=== PATIENT | female | born 1975 | race Caucasian/White ===

== ENCOUNTER 2019-03-29 11:59 | Emergency (ER) | payer SELFPAY ==
[2019-03-29] MEDS ORDERED: ONDANSETRON INJ 4 MG/2 ML VIAL IV ONE (12:13)
--- NOTE | 2019-03-29 12:49 | ED.PDOC ---
History of Present Illness - General Chief Complaint: Abdominal Pain Stated Complaint: epigastric pain Time Seen by Provider: 03/29/19 12:32 - History of Present Illness Initial Comments: Patient presents with abdominal pain for 10 hours. Sudden onset, infrasternal, non-radiating, burning in nature, constant, associated with N/V of yellow sputum, multiple previous episodes. No history of abdominal surgeries. No diarrhea. Pain is mildly better just after vomiting. Las meal was yesterday. Last BM was this morning and was normal. No other complaints. Timing/Duration: other - 10 hours Severity: moderate Improving Factors: other - as in HPI Worsening Factors: nothing Associated Symptoms: nausea/vomiting Allergies/Adverse Reactions: Allergies NO KNOWN ALLERGY Allergy (Verified 03/29/19 12:12) Home Medications: Ambulatory Orders Omeprazole 20 mg PO QAM #30 cap 03/29/19 Review of Systems - Review of Systems Constitutional: States: no symptoms reported EENTM: States: no symptoms reported Respiratory: States: no symptoms reported Cardiology: States: no symptoms reported Gastrointestinal/Abdominal: States: see HPI Genitourinary: States: no symptoms reported Musculoskeletal: States: no symptoms reported Skin: States: no symptoms reported Neurological: States: no symptoms reported Endocrine: States: no symptoms reported Hematologic/Lymphatic: States: no symptoms reported Past Medical History (General) - Patient Medical History Hx Stroke: No Hx Congestive Heart Failure: No Hx Diabetes: No Surgical History: no surgical history - Vaccination History Hx Influenza Vaccination: No - Social History Hx Tobacco Use: No - Female History Patient is a Female of Child Bearing Age (10 -59 yrs old): Yes Family Medical History - Family History Mother Family History: Unknown Living Status: Unknown Physical Exam - Physical Exam General Appearance: Alert Eye Exam: bilateral normal Ears, Nose, Throat: normal ENT inspection Neck: non-tender, full range of motion, supple Respiratory: lungs clear, normal breath sounds Cardiovascular/Chest: normal peripheral pulses, regular rate, rhythm Gastrointestinal/Abdominal: normal bowel sounds, non tender, soft Back Exam: normal inspection, no CVA tenderness Extremity: normal range of motion, non-tender, normal inspection Neurologic: no motor/sensory deficits, alert, normal mood/affect, oriented x 3 Skin Exam: normal color Lymphatic: no adenopathy Progress - Progress Progress: 03/29/19 15:51 Laboratory Tests 03/29/19 03/29/19 03/29/19 12:27 12:27 12:27 WBC 12.4 H RBC 4.80 Hgb 13.6 Hct 40.1 MCV 83.5 MCH 28.3 MCHC 33.8 RDW 15.6 H Plt Count 191 MPV 9.2 Absolute Neuts (auto) 10.80 H Absolute Lymphs (auto) 1.30 Absolute Monos (auto) 0.30 Absolute Eos (auto) 0.00 Absolute Basos (auto) 0.00 Neutrophils % 86.7 H Lymphocytes % 10.1 L Monocytes % 2.7 Eosinophils % 0.1 L Basophils % 0.4 Sodium 136 Potassium 4.0 Chloride 101 Carbon Dioxide 23 Anion Gap 16.0 BUN 12 Creatinine 0.77 BUN/Creatinine Ratio 15.6 Random Glucose 119 H Serum Osmolality 272.9 L Calcium 9.4 Total Bilirubin 0.7 AST 28 ALT 26 Alkaline Phosphatase 90 Serum Total Protein 7.8 Albumin 4.4 Globulin 3.4 Albumin/Globulin Ratio 1.3 Lipase 24 Serum HCG, Qual Urine Color Red H Urine Appearance Cloudy Urine pH 7.0 Ur Specific [place] 1.025 Urine Protein 30 Urine Glucose (UA) Negative Urine Ketones Negative Urine Blood Large H Urine Nitrite Negative Urine Bilirubin Negative Urine Urobilinogen 0.2 Ur Leukocyte Esterase Negative Urine RBC Tntc H Urine WBC 0 Ur Epithelial Cells 1-3 Urine Bacteria Rare 03/29/19 12:27 WBC RBC Hgb Hct MCV MCH MCHC RDW Plt Count MPV Absolute Neuts (auto) Absolute Lymphs (auto) Absolute Monos (auto) Absolute Eos (auto) Absolute Basos (auto) Neutrophils % Lymphocytes % Monocytes % Eosinophils % Basophils % Sodium Potassium Chloride Carbon Dioxide Anion Gap BUN Creatinine BUN/Creatinine Ratio Random Glucose Serum Osmolality Calcium Total Bilirubin AST ALT Alkaline Phosphatase Serum Total Protein Albumin Globulin Albumin/Globulin Ratio Lipase Serum HCG, Qual Negative Urine Color Urine Appearance Urine pH Ur Specific [place] Urine Protein Urine Glucose (UA) Urine Ketones Urine Blood Urine Nitrite Urine Bilirubin Urine Urobilinogen Ur Leukocyte Esterase Urine RBC Urine WBC Ur Epithelial Cells Urine Bacteria No concerning findings on labs. Patient received Zofran 4 mg upon arrival but was still nauseous. She attempted to drink a GI cocktail but vomited it up. She was given Protonix 40 mg IV x one and Phenergan. He pain improved significantly. She was able to drink a GI cocktail at that point and it made her symptoms almost resolve. She was given an RX for Phenergan and omeprazole. Likely gastritis. She was instructed to see a general practitioner in order to get a referral to GI for possible upper endoscopy. Departure - Departure Clinical Impression: Gastritis Disposition: Discharge to Home or Self Care Condition: Good Departure Forms: ED Discharge - Pt. Copy, Patient Portal Self Enrollment Instructions: Gastritis (DC), [place] Diet Diet: other - see diet guidelines Activity: increase activity as tolerated Prescriptions: Omeprazole 20 mg PO QAM #30 cap Home Medications: Ambulatory Orders Omeprazole 20 mg PO QAM #30 cap 03/29/19 Additional Instructions: Follow up with a family medicine physician for possible referral to a G.I. doctor. You may need an upper endoscopy. Take medication as prescribed. Return to the E.R. for worsening symptoms or temperature greater than 100.3.
[2019-03-29] MEDS ORDERED: KETOROLAC TROMETHAMINE INJ 30 MG/ML VIAL IV ONE (12:58)
[2019-03-29] MEDS ORDERED: ALUM & MAG HYDROX-SIMETHICONE 30 ML, LIDOCAINE VISCOUS 2% 15 ML PO ONE ×4 (12:59→15:09)
[2019-03-29] MEDS ORDERED: ALUM & MAG HYDROX-SIMETHICONE 30 ML UD ONE ×2 (13:00→15:12)
[2019-03-29] MEDS ORDERED: LIDOCAINE HCL 2% (MOUTH-THROAT) 15 ML UD ONE ×2 (13:00→15:12)
--- NOTE | 2019-03-29 13:28 | RAD ---
EXAM DESCRIPTION: Abdomen Flat Upright CLINICAL HISTORY: 43 years, Female, epigastric burning, possible hiatal hernia COMPARISON: None. FINDINGS: Two x-ray views of the abdomen were performed. No pneumoperitoneum is present. The lung bases are clear. No gaseous distention of bowel. No suspicious air-fluid level. No visualized hiatal hernia. No suspicious calcification. Small amount colonic stool. Enthesopathy projects off the iliac wings. IMPRESSION: No evidence of bowel obstruction. No hiatal hernia directly visualized although the lack of visualization on this study does not exclude its presence. Electronically signed by: Katelyn Vidal MD 03/29/2019 1:27 PM CDT
[2019-03-29] MEDS ORDERED: PANTOPRAZOLE SODIUM IV 40 MG VIAL ONE (13:29)
[2019-03-29] MEDS ORDERED: ROCURONIUM BROMIDE 10 MG/ML VIAL IV ONE (13:30)
[2019-03-29] MEDS ORDERED: PANTOPRAZOLE SODIUM IV 40 MG VIAL IV ONE (13:34)
[2019-03-29] MEDS ORDERED: PROMETHAZINE HCL INJ 25 MG in SODIUM CHLORIDE 0.9% 50ML 50 ML IVPB ONE (13:41)
[2019-03-29] MEDS ORDERED: PROMETHAZINE HCL INJ 25 MG/ML VIAL ONE (13:50)
[2019-03-29] MEDS ORDERED: SODIUM CHLORIDE 0.9% 50ML 50 ML ONE (13:51)
[2019-03-29 16:07] VITALS: BP 155/101; TEMP 99.8; O2SAT 97
== END 2019-03-29 16:07 | disposition home or self-care (01) ==
LOC: ER 11:59
DX: K29.70 Gastritis, unspecified, without bleeding (principal)
CPT/HCPCS: 36415; 74019; 80053; 81001; 83690; 84703; 85025; A4216; J1885; J2405; J2550

== ENCOUNTER 2020-04-04 01:12 | Emergency (ER) | payer SELFPAY ==
[2020-04-04] MEDS ORDERED: MORPHINE SULFATE INJ 10 MG/ML VIAL IV ONE (01:20)
[2020-04-04] MEDS ORDERED: ONDANSETRON INJ 4 MG/2 ML VIAL IV ONE ×3 (01:20→05:18)
[2020-04-04] MEDS ORDERED: SODIUM CHLORIDE 0.9% 1000ML 1,000 ML IVS PRN (01:20)
--- NOTE | 2020-04-04 01:23 | ED.PDOC ---
History of Present Illness - General Time Seen by Provider: 04/04/20 01:20 - History of Present Illness Initial Comments: 44 yo F comes in with the c/c of abdominal pain, n/v since 8 PM. States she has on and off spells for the past several weeks. worse after eating. Noticed her urine is dark. Pain radiates to her chest. no diarrhea, no black or bloody bm. no prior abdominal surgeries. Allergies/Adverse Reactions: Allergies NO KNOWN ALLERGY Allergy (Verified 03/29/19 12:12) Home Medications: Ambulatory Orders Omeprazole 20 mg PO QAM #30 cap 03/29/19 Review of Systems - Review of Systems Constitutional: Denies: diaphoresis, fever, malaise EENTM: Denies: eye pain, blurred vision, tearing, double vision, ear pain Respiratory: Denies: cough, orthopnea, short of breath, stridor Cardiology: States: chest pain. Denies: edema, palpitations, syncope Gastrointestinal/Abdominal: States: abdominal pain, nausea, vomiting. Denies: constipation, diarrhea Genitourinary: Denies: discharge, dysuria, frequency, hematuria Musculoskeletal: Denies: back pain, joint pain, joint swelling, muscle pain, muscle stiffness Skin: Denies: change in color, change in hair/nails, dryness, rash Neurological: Denies: headache, numbness, paresthesia, pre-existing deficit, seizure, tingling, tremors, weakness Endocrine: Denies: intolerance to cold, intolerance to heat, increased urine, unexplained weight gain, unexplained weight loss Hematologic/Lymphatic: Denies: anemia, blood clots, easy bleeding, easy bruising Past Medical History (General) - Patient Medical History Hx Stroke: No Hx Congestive Heart Failure: No Hx Diabetes: No - Vaccination History Hx Influenza Vaccination: No - Social History Hx Tobacco Use: No Family Medical History - Family History Mother Family History: Unknown Living Status: Unknown Physical Exam - Physical Exam General Appearance: Alert, No apparent distress Eye Exam: bilateral normal, bilateral scleral icterus Ears, Nose, Throat: hearing grossly normal, normal ENT inspection Neck: non-tender, full range of motion, supple, normal inspection Respiratory: chest non-tender, lungs clear, normal breath sounds, no respiratory distress, no accessory muscle use Cardiovascular/Chest: normal peripheral pulses, regular rate, rhythm, no edema, no gallop, no JVD, no murmur Peripheral Pulses: radial,right: 2+, radial,left: 2+ Gastrointestinal/Abdominal: normal bowel sounds, soft, no organomegaly, no pulsatile mass, other - RUQ tenderness, no rebound no gaurding. 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 Will get IVF, morphine, zofran and Zosyn 4.5 mg IV. EKG and CXR for chest pain. EKG shows NSR HR 100, normal ekg. CXR shows no acute cardiopulmonary pathology. bedside US shows + West sign, large gallstone noted, unable to access gbw thickness due to bowel gas. Common bile duct at least 1 cm, but difficult due to bowel gas interference. no stones noted in gallbladder. gallbladder sludge. pain still continues will get 1 mg Dilaudid and 4 mg zofran. lab called and said lipase was to numerous to count. CT scan shows: Gallstone pancreatitis. Dilated common bile duct, with suspected choledocholithiasis. Patient refusing transport by ambulance. 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 The hist ory and assessments from nurses notes were reviewed and considered, and the patient's home medication list was also reviewed and considered. My assessment and the results of testing completed here in the ED were discussed with the patient. All questions were answered, and they express understanding of my assessment and the plan. Patient will sign out AMA to have her son drive her to [facility]. Talk to ER doc at [facility], accepted for transfer. Patient explained the risk of not going by ambulance. patient left AMA in stable condition. - Results/Orders Results/Orders: 04/04/20 01:20 Sodium Chloride 0.9% 1000ML [Ns 1000 ml] 1,000 ml IVS STAT HCG,QUALITATIVE URINE Stat URINALYSIS Stat 04/04/20 01:30 EKG STAT 04/04/20 02:58 BLOOD CULTURE Stat 04/04/20 03:06 Hold Metformin x 48Hrs [id number] Abdomen/Pelvis w/Contrast [CT] Stat Laboratory Results WBC 13.3 K/mm3 (4.8-10.8) H 04/04/20 01:28 RBC 4.86 M/mm3 (4.20-5.40) 04/04/20 01:28 Hgb 13.6 gm/dL (12.0-16.0) 04/04/20 01:28 Hct 40.7 % (36.0-47.0) 04/04/20 01:28 MCV 83.8 fl (81.0-99.0) 04/04/20 01:28 MCH 27.9 pg (27.0-31.0) 04/04/20 01:28 MCHC 33.3 g/dL (33.0-37.0) 04/04/20 01:28 RDW 16.3 % (11.5-14.5) H 04/04/20 01:28 Plt Count 203 K/mm3 (130-400) 04/04/20 01:28 MPV 9.0 fl (7.40-10.4) 04/04/20 01:28 Absolute Neuts (auto) 11.40 K/uL (1.8-6.8) H 04/04/20 01:28 Absolute Lymphs (auto) 1.10 K/uL (1.0-3.4) 04/04/20 01:28 Absolute Monos (auto) 0.60 K/uL (0.2-0.8) 04/04/20 01:28 Absolute Eos (auto) 0.00 K/uL (0.0-0.4) 04/04/20 01:28 Absolute Basos (auto) 0.10 K/uL (0.0-0.1) 04/04/20 01:28 Neutrophils % 86.1 % (42.0-78.0) H 04/04/20 01:28 Lymphocytes % 8.2 % (20.0-50.0) L 04/04/20 01:28 Monocytes % 4.7 % (2.0-9.0) 04/04/20 01:28 Eosinophils % 0.3 % (1.0-5.0) L 04/04/20 01:28 Basophils % 0.7 % (0.0-2.0) 04/04/20 01:28 Sodium 136 mmol/L (135-145) 04/04/20 01:28 Potassium 4.2 mmol/L (3.6-5.0) 04/04/20 01:28 Chloride 103 mmol/L (101-111) 04/04/20 01:28 Carbon Dioxide 21 mmol/L (21-31) 04/04/20 01:28 Anion Gap 16.2 (12-18) 04/04/20 01:28 BUN 15 mg/dL (7-18) 04/04/20 01:28 Creatinine 0.89 mg/dL (0.6-1.3) 04/04/20 01:28 BUN/Creatinine Ratio 16.9 (10-20) 04/04/20 01:28 Random Glucose 167 mg/dL (70-105) H 04/04/20 01:28 Serum Osmolality 276.6 mOsm/L (275-295) 04/04/20 01:28 Calcium 9.2 mg/dL (8.4-10.2) 04/04/20 01:28 Total Bilirubin 3.9 mg/dL (0.2-1.0) H* 04/04/20 01:28 AST 162 IU/L (10-42) H 04/04/20 01:28 ALT 260 IU/L (10-60) H 04/04/20 01:28 Alkaline Phosphatase 217 IU/L (42-121) H 04/04/20 01:28 Troponin I < 0.02 ng/mL (0.01-0.05) 04/04/20 01:28 Serum Total Protein 7.8 gm/dL (6.4-8.2) 04/04/20 01:28 Albumin 4.3 g/dl (3.2-5.5) 04/04/20 01:28 Globulin 3.5 gm/dL (2.3-3.5) 04/04/20 01:28 Albumin/Globulin Ratio 1.2 (1.1-1.9) 04/04/20 01:28 Lipase > 57 U/L (22-51) H 04/04/20 01:28 Departure - Departure Clinical Impression: Gallstone pancreatitis Disposition: Transfer to Hospital Home Medications: Ambulatory Orders Omeprazole 20 mg PO QAM #30 cap 03/29/19 Transfer to Outside Facility - Transfer Information Decision to Transfer Date: 04/04/20 Decision to Transfer Time: 03:00 Reason for Transfer: required specialist not available Accepting Facility: [facility] - patient refusing transport by ambulance. will have patient sign out AMA
--- NOTE | 2020-04-04 02:02 | RAD ---
EXAM DESCRIPTION: Chest,1 View CLINICAL HISTORY: 44 years Female, chest pain COMPARISON: None TECHNIQUE: Single AP chest radiograph. FINDINGS: Clear lungs. No pneumothorax or pleural effusion. Normal cardiomediastinal contour. Normal osseous structures. IMPRESSION: 1. No acute cardiopulmonary process. Electronically signed by: Federico Faria MD 04/04/2020 2:00 AM CDT
[2020-04-04] MEDS ORDERED: HYDROmorphone HCL INJ 2 MG/ML VIAL IV ONE ×3 (02:17→05:19)
[2020-04-04] MEDS ORDERED: PIPERACILLIN/TAZOBACTAM 4.5 GM in SODIUM CHLORIDE 0.9% 100ML 100 ML IVPB ONE (02:36)
--- NOTE | 2020-04-04 04:03 | CT ---
EXAM DESCRIPTION: Abdomen/Pelvis w/Contrast CLINICAL HISTORY: 44 years Female abdominal pain COMPARISON: 03/29/2019 TECHNIQUE: Multiple contiguous axial CT slices were taken from the diaphragms to the pubic symphysis after intravenous administration of Iodinated contrast. This exam was performed according to our departmental dose-optimization program, which includes automated exposure control, adjustment of the mA and/or kV according to patient size and/or use of iterative reconstruction technique. FINDINGS: The lung bases are clear. Visualized cardiomediastinal structures are normal. No focal hepatic lesions. Cholelithiasis. There is dilation of the common bile duct, with suspected gallstone near the ampulla. No intrahepatic biliary ductal dilation. There is an edematous pancreas with surrounding fat stranding. No evidence of pancreatic necrosis. No peripancreatic fluid collection or gas. The kidneys, ureters and bladder are normal. The uterus is normal. No adnexal masses. The small bowel is normal. The appendix is normal. The large bowel is normal. No pneumatosis or pneumoperitoneum. No lymphadenopathy. The aorta and IVC are normal. No abdominal wall hernia defects. No destructive osseous lesions. IMPRESSION: 1. Gallstone pancreatitis. Dilated common bile duct, with suspected choledocholithiasis. Electronically signed by: Federico Faria MD 04/04/2020 4:01 AM CDT
[2020-04-04 05:53] VITALS: BP 145/94; TEMP 98.1; O2SAT 97
== END 2020-04-04 05:50 | disposition short-term general hospital (02) ==
LOC: ER 01:12
DX: K85.10 Biliary acute pancreatitis without necrosis or infection (principal); R11.2 Nausea with vomiting, unspecified
CPT/HCPCS: 71045; 74177; 80053; 83690; 84484; 85025; 87040; 93005; J1170; J2270; J2405; J2543; J7030; J7050

== ENCOUNTER → 2020-06-03 | Outpatient (CLI) | payer OTHER | LOC: YCFC.O 14:57 | PROVIDERS: ATTEND Family Medicine | DX: Z03.818 Encounter for observation for suspected exposure to other biological agents ruled out (principal) ==